=== PATIENT | male | born 1980 | race Caucasian/White ===

== ENCOUNTER → 2016-09-05 | Outpatient (CLI) | payer OTHER ==
--- NOTE | 2016-09-05 16:02 | US ---
EXAMINATION TYPE: US abdomen limited DATE OF EXAM: 09/05/2016 3:55 PM COMPARISON: NONE CLINICAL HISTORY: K34.9 Epigastric Hernia. Pt has a soft tissue non-reducible mass at the epigastric area; not tender except when pressing hard; first noticed about 2-3 months ago Scanned over the patient's area of concern. There is a 2.2 x 0.9 x 2.1cm echogenic solid, non-vascul ar mass ?lipoma IMPRESSION: PROBABLE 2.2 CM LIPOMA IN THE ANTERIOR ABDOMINAL WALL.
== END | disposition home or self-care (01) ==
LOC: RADUSWWP 15:41
PROVIDERS: ATTEND Family Medicine
DX: K43.9 Ventral hernia without obstruction or gangrene (principal)
CPT/HCPCS: 76705

== ENCOUNTER → 2017-08-15 | Outpatient (CLI) | payer OTHER ==
--- NOTE | 2017-08-16 08:21 | US ---
EXAMINATION TYPE: US carotid duplex BILAT DATE OF EXAM: 08/15/2017 COMPARISON: NONE CLINICAL HISTORY: H53.10 SUBJECTIVE VISUAL DISTURBANCES. EXAM MEASUREMENTS: RIGHT: Peak Systolic Velocity (PSV) cm/sec ----- Right CCA: 125.3 ----- Right ICA: 117.3 ----- Right ECA: 130.2 ICA/CCA ratio: 0.9 RIGHT: End Diastole cm/sec ----- Right CCA: 43.0 ----- Right ICA: 38.1 ----- Right ECA: 36.5 LEFT: Peak Systolic Velocity (PSV) cm/sec ----- Left CCA: 150.9 ----- Left ICA: 136.6 ----- Left ECA: 101.2 ICA/CCA ratio: 0.9 LEFT: End Diastole cm/sec ----- Left CCA: 54.4 ----- Left ICA: 36.5 ----- Left ECA: 31.4 VERTEBRALS (direction of flow): Right Vertebral: Antegrade Left Vertebral: Antegrade Rhythm: Normal No significant stenosis seen, no plaque identified. IMPRESSION: 1. Mild elevation of the left internal carotid artery velocity suggesting moderate stenosis between 5 0 and 69%. Significant plaquing however is not identified Criteria for Assigning % of Stenosis / Diameter reduction (Estimation based on the indirect measurements of the internal carotid artery velocities (ICA PSV). 1. Normal (no stenosis)=ICA PSV < 125 cm/s: ratio < 2.0: ICA EDV<40 cm/s. 2. Less than 50% stenosis=ICA PSV < 125 cm/s: ratio < 2.0: ICA EDV<40 cm/s. 3. 50 to 69% stenosis=ICA PSV of 125 to 230 cm/s: ration 2.0 ? 4.0: ICA EDV 40-100 cm/s. 4. Greater than 70% stenosis to near occlusion= ICA PSV > 230 cm/s: ratio > 4.0: ICA EDV > 100 cm/s. 5. Near occlusion= ICA PSV velocities may be low or undetectable: variable ratio and ICA EDV. 6. Total occlusion=unable to detect flow.
== END | disposition home or self-care (01) ==
LOC: RADUSWWP 16:57
PROVIDERS: ATTEND Family Medicine
DX: H53.10 Unspecified subjective visual disturbances (principal)
CPT/HCPCS: 93880

== ENCOUNTER → 2017-09-11 | Outpatient (CLI) | payer OTHER ==
[2017-09-11 17:32] LABS: ALT 29 U/L (21-72); AST 26 U/L (17-59); Blood Urea Nitrogen 22 mg/dL (9-20)
[2017-09-12 00:19] LABS: Folate, Serum 19.5 ng/mL
[2017-09-12 10:37] LABS: Lyme IgG/IgM 0.1 Index
== END | disposition home or self-care (01) ==
LOC: LABWHC1 16:54
PROVIDERS: ATTEND Psychiatry & Neurology Neurology
DX: R41.3 Other amnesia (principal)
CPT/HCPCS: 36415; 82565; 82607; 82746; 84450; 84460; 84520; 86618

== ENCOUNTER → 2017-09-12 | Outpatient (CLI) | payer OTHER ==
--- NOTE | 2017-09-12 20:08 | MR ---
EXAMINATION TYPE: MR brain wo/w con DATE OF EXAM: 09/12/2017 COMPARISON: NONE HISTORY: Double vision, mood changes, memory loss TECHNIQUE: Multiplanar, multisequence images of the brain and brainstem is performed without and with IV contras t, utilizing 10 mL intravenous Gadavist . FINDINGS: Diffusion weighted images demonstrate no evidence of a recent infarct or other diffusion ab normality. There is no extra-axial fluid collection. Punctate right parietal lobe 1-2 mm foci are se en on FLAIR and axial fat sat image 17 and 21. No other significant white matter abnormality is ident ified. The ventricular system and cisternal spaces are normal in size and appearance. The brain vol ume is age appropriate. Midline structures demonstrate normal morphology. 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 The craniocervical junction appears within normal limits. Post contrast images demonstrate no abno rmal enhancement. The dural venous sinuses appear patent. The globes are intact. Fluid layers seen wi thin the right maxillary sinus with mild circumferential mucosal thickening of the maxillary sinuses, moderate mucosal thickening within the sphenoid sinus and ethmoid sinuses and mild right frontal muc osal thickening. Secretions are also noted within the posterior nasopharynx. Mastoid air cells are we ll aerated. Major intracranial flow voids are maintained with dominance of the left vertebral artery. IMPRESSION: 1. Moderate pansinusitis. 2. No acute intracranial process or abnormal intracranial enhancement. No intracranial enhancing mass . 3. Two punctate (1-2 mm) foci of nonspecific white matter change. These are not in a typical distribu tion of demyelinating disease and may represent sequela of microvascular injury.
== END | disposition home or self-care (01) ==
LOC: RADMRIMAIN 18:44
PROVIDERS: ATTEND Psychiatry & Neurology Neurology
DX: D49.6 Neoplasm of unspecified behavior of brain (principal); R94.09 Abnormal results of other function studies of central nervous system; J32.4 Chronic pansinusitis
CPT/HCPCS: 70553; A9581

== ENCOUNTER → 2017-10-26 | Outpatient (CLI) | payer OTHER ==
--- NOTE | 2017-10-26 17:51 | CONS ---
CONSULTATION DATE OF SERVICE: 10/26/2017 This patient is a 37-year-old gentleman who has been evaluated in the sleep center for possible obstructive sleep apnea-hypopnea syndrome. HISTORY OF PRESENT ILLNESS/SLEEP-WAKE EVALUATION: Patient's usual sleep schedule is from 11 p.m. to 5:30 a.m. on working days and from midnight until 10 a.m. on weekends. No problem with falling asleep. He does not watch TV in the bedroom. He sleeps in different positions with his . According to her, he has loud snoring and witnessed episodes of stopped breathing during sleep. He wakes up tired, has difficulties paying attention, falling asleep during the day, worried about his sleep. He has episodes of irritability, depression and anxiety. Meade Sleepiness Scale is significantly increased at 17. No history of hypnagogic hallucinations, sleep paralysis or cataplexy. PAST MEDICAL HISTORY: 1. Anxiety. 2. Depression. 3. Episodes of headaches. Sometimes episodes of headaches happen in the morning after awakening, which could be related to obstructive sleep apnea. MEDICATIONS: 1. Lexapro. 2. Topamax. PAST SURGICAL HISTORY: None. SOCIAL HISTORY: Positive for smoking for about 23 years up to one and one half packs a day. Quit about 1 year ago. Alcohol consumption: Several beers per week. REVIEW OF SYSTEMS: Snoring, witnessed episodes of stopped breathing during sleep, sleepiness, significant sleepiness during the day. Patient may take a nap during the day. FAMILY HISTORY: Heart problems, snoring, cancer, diabetes, acid reflux. PHYSICAL EXAMINATION: GENERAL A pleasant gentleman without distress. VITAL SIGNS: BP 132/71, HR 74, RR 16, height 6 feet 2 inches, weight 218. Body mass index 27.9. Neck 16-1/4 inches in circumference. Temperature 97.6, oxygen saturation at room air 97% HEENT: PERRLA, EOMI. Evaluation of oropharynx showed tongue protrudes midline; moderately low position of soft palate. Small oropharyngeal air space. Restriction of nasal breathing bilaterally. Nasal septum deviation. NECK: Supple. No JVD. Thyroid is not palpable. LUNGS: Clear to percussion and to auscultation. Good air exchange. No wheezing or rhonchi. HEART: S1, S2 regular. No murmurs, gallops or rubs. ABDOMEN: Soft and nontender. Bowel sounds are present. No organomegaly appreciated. EXTREMITIES : No clubbing or cyanosis. BOBBIN FIXER: Awake, alert, and oriented X3. Cranial nerves 2 to 7 intact. There is no fasciculation or atrophy. noted. No focal deficits observed. IMPRESSION: 1. Snoring, witnessed episodes of stopped breathing during sleep, small oropharyngeal air space, restriction of nasal breathing, wide neck 16-1/4 inches, significant excessive daytime sleepiness, Meade Sleepiness Scale 17; obstructive sleep apnea-hypopnea syndrome. 2. History of anxiety. 3. History of depression. 4. History of headaches; some of them start in the morning after awakening. 5. Significant sleepiness. Meade Sleepiness Scale increased at 17. Differential diagnosis should include also hypersomnia, including narcolepsy and idiopathic hypersomnia. 6. Nasal septum deviation. PLAN: 1. Polysomnography for evaluation of patient's breathing during sleep. 2. CPAP/BiPAP titration if sleep study confirms obstructive sleep apnea-hypopnea syndrome. 3. Preferable position during sleep on the side. 4. No driving if patient feels any sleepiness. 5. Multiple sleep latency test if sleep study is negative for obstructive sleep apnea- hypopnea syndrome. 6. I will see patient for follow up visit to explain results of testing and following plan. Thank you very much for referring this patient for consultation. Sincerely, Tho Kaba MD, PhD, FAASM Diplomat of [place] [employer] [place] [employer] Manager [facility] [place] MMODL / RONNIEN: [id number] /
== END | disposition home or self-care (01) ==
LOC: SLEEP 15:02
PROVIDERS: ATTEND Internal Medicine
DX: G47.33 Obstructive sleep apnea (adult) (pediatric) (principal); J39.2 Other diseases of pharynx; J34.2 Deviated nasal septum; F41.9 Anxiety disorder, unspecified; F32.9 Major depressive disorder, single episode, unspecified; Z86.69 Personal history of other diseases of the nervous system and sense organs; Z79.899 Other long term (current) drug therapy; Z87.891 Personal history of nicotine dependence
CPT/HCPCS: 99211

== ENCOUNTER → 2018-02-08 | Outpatient (CLI) | payer OTHER ==
--- NOTE | 2018-02-08 12:44 | SFUN ---
SLEEP CENTER FOLLOW UP NOTE DATE OF SERVICE: 02/08/2018 A 37-year-old gentleman has been followed in sleep center to discuss results of sleep studies. I discussed results of sleep studies with patient in details. Polysomnogram showed mild obstructive sleep apnea-hypopnea syndrome with apnea-hypopnea index of 5.9, but in REM sleep 34.0. Multiple sleep latency test done on the following day consisted from 5 naps. Mean sleep latency normal 15.5 minutes. No sleep onset REM periods have been documented. MEDICATIONS: Lexapro, Topamax. PHYSICAL EXAMINATION: During physical exam, patient in no distress. VITAL SIGNS: BP 106/65, HR 60, RR 16, temp 98.2, oxygen saturation on room air 97%. HEENT: PERRLA, EOMI. Oropharynx moderately low position of soft palate. Nose: Slight restriction of nasal breathing. NECK: Supple, no JVD. Thyroid is not palpable. LUNGS: Clear to percussion and to auscultation. Good air exchange. No wheezing or rhonchi. HEART: S1, S2 regular. No murmurs, gallops, or rubs. ABDOMEN: Soft and nontender. Bowel sounds are present. No organomegaly appreciated. EXTREMITIES: No clubbing or cyanosis. WHEEL LACER AND TRUER; awake, alert, and oriented X3. Cranial nerves 2 to 7 intact. There is no fasciculation or atrophy. noted. No focal deficits observed. IMPRESSION: 1. Mild obstructive sleep apnea-hypopnea syndrome. Patient presents with symptoms of significant excessive daytime sleepiness, severe respiratory abnormalities related to REM sleep. 2. History of anxiety. 3. History of depression. 4. History of headaches, sometimes started in the morning after awakenings. 5. Nasal septum deviation. PLAN: 1. CPAP titration for correction of respiratory abnormalities. 2. Sleep hygiene with regular time in bed for at least 8 hours. 3. No driving if feeling any sleepiness. 4. I will see patient for follow-up visit after he will be started on treatment with CPAP to evaluate clinical response and treatment compliance with treatment and make any necessary adjustments related to mask fitting, pressure and humidification. Thank you very much for allowing me to participate in management of your patient. Sincerely, Tho Kaba MD, PhD, FAASM Diplomat of [place] [employer] [place] [employer] Traffic And Transport Planner [facility] [place] MMODL / IJN: [id number] /
== END | disposition home or self-care (01) ==
LOC: SLEEP 11:10
PROVIDERS: ATTEND Internal Medicine
DX: G47.33 Obstructive sleep apnea (adult) (pediatric) (principal); J34.2 Deviated nasal septum; F41.9 Anxiety disorder, unspecified; F32.9 Major depressive disorder, single episode, unspecified; Z79.899 Other long term (current) drug therapy

== ENCOUNTER 2021-02-01 10:32 | Emergency (ER) | payer OTHER ==
[2021-02-01] MEDS ORDERED: ACETAMINOPHEN TAB 500 MG TAB PO STA (11:19)
--- NOTE | 2021-02-01 12:10 | XR ---
EXAMINATION TYPE: XR chest 1V portable DATE OF EXAM: 02/01/2021 COMPARISON: 04/23/2010 HISTORY: Suspected COVID-19 pneumonia TECHNIQUE: Single frontal view of the chest is obtained. FINDINGS: Vague peripheral infiltrate suggested particularly right upper lobe. Correlate for pneumonia. The cardiac silhouette size is within normal limits. The osseous structures are intact. IMPRESSION: 1. Vague peripheral infiltrate suggested particularly right upper lobe. Correlate for pneumonia.
[2021-02-01 12:29] VITALS: RESP 20
--- NOTE | 2021-02-01 12:44 | ED ---
Fever HPI - General Chief Complaint: Fever Stated Complaint: Covid symptoms, +exposure Time Seen by Provider: 02/01/21 11:18 Source: patient Mode of arrival: ambulatory Limitations: no limitations - History of Present Illness Initial Comments: 40-year-old male presents to the emergency department with chief complaint of cough and fever. States symptoms are benign well for approximately one week. States she has been taking Tylenol and able to break the fever but it is not fully resolving. He reports a nonproductive cough with occasional rhinorrhea but denies any sore throat or otalgia. Denies any nausea vomiting or diarrhea. States his girlfriend tested positive for Covid. He is not vaccinated. Denies any chest pain or shortness of breath at this time. Not a smoker. - Related Data Home Medications Medication Instructions Recorded Confirmed Ibuprofen [Motrin Ib] 600 - 800 mg PO Q8H PRN 02/01/21 02/01/21 guaiFENesin [Mucinex] 600 mg PO BID 02/01/21 02/01/21 Previous Rx's Medication Instructions Recorded Azithromycin [Zithromax Z-pack (6 0 mg PO DIRECTED #1 pack 02/01/21 tabs)] Allergies Allergy/AdvReac Type Severity Reaction Status Date / Time No Known Allergies Allergy Verified 02/01/21 12:30 Review of Systems ROS Statement: Those systems with pertinent positive or pertinent negative responses have been documented in the HPI. ROS Other: All systems not noted in ROS Statement are negative. Past Medical History Past Medical History: No Reported History History of Any Multi-Drug Resistant Organisms: None Reported Past Surgical History: No Surgical Hx Reported Past Psychological History: No Psychological Hx Reported Smoking Status: Never smoker Past Alcohol Use History: None Reported Past Drug Use History: None Reported General Exam Limitations: no limitations General appearance: alert, in no apparent distress Head exam: Present: atraumatic, normocephalic, normal inspection Eye exam: Present: normal appearance Pupils: Present: normal accommodation ENT exam: Present: normal exam, normal oropharynx, mucous membranes moist, TM's normal bilaterally, normal external ear exam Neck exam: Present: normal inspection, full ROM. Absent: tenderness, lymphadeno lisa Respiratory exam: Present: normal lung sounds bilaterally. Absent: respiratory distress, wheezes, rales, rhonchi, stridor, chest wall tenderness, accessory muscle use Cardiovascular Exam: Present: regular rate, normal rhythm, normal heart sounds. Absent: systolic murmur Extremities exam: Present: normal inspection, full ROM. Absent: tenderness Back exam: Present: normal inspection, full ROM. Absent: tenderness Neurological exam: Present: alert, oriented X3, normal gait Psychiatric exam: Present: normal affect, normal mood Skin exam: Present: warm, dry, intact, normal color Course Vital Signs 02/01/21 02/01/21 11:08 12:28 Temperature 99.7 F H 102.3 F H Pulse Rate 104 H 104 H Respiratory 18 20 Rate Blood Pressure 133/75 124/85 O2 Sat by Pulse 94 L 93 L Oximetry Medical Decision Making - Medical Decision Making 40-year-old male presents to the emergency department with chief complaint of cough and fever. On physical examination, patient is well-appearing. Lungs are clear to auscultation. ENT examination is unremarkable. Was febrile and tachycardic on arrival. He was given Tylenol. Chest x-ray revealed peripheral infiltrates suggesting for pneumonia. He was told positive. She was given a monoclonal antibody. Patient was observed after infusion and feels better. He will be discharged. I will also prescribe azithromycin for the patient. He does not have any chest pain shortness of breath. Advised to return to emergency department if symptoms worsen. C covid-19A protocol discussed. Case discussed with - Lab Data Lab Results 02/01/21 Range/Units 11:57 Coronavirus (PCR) Detected A (Not Detectd) Disposition Clinical Impression: COVID-19 Disposition: HOME SELF-CARE Condition: Stable Instructions (If sedation given, give patient instructions): Coronavirus Disease 2019 (COVID-19) Additional Instructions: Please return to the Emergency Department if symptoms worsen or any other concerns. Prescriptions: Azithromycin [Zithromax Z-pack (6 tabs)] 0 mg PO DIRECTED #1 pack Is patient prescribed a controlled substance at d/c from ED?: No Referrals: Carlo Aleman MD [Primary Care Provider] - 1-2 days Time of Disposition: 13:55
[2021-02-01] MEDS ORDERED: SODIUM CHLORIDE 0.9% 50 ML IVPB ONE (13:30)
[2021-02-01] MEDS ORDERED: CASIRIVIMAB (REGN10933) (EUA) 600 MG, IMDEVIMAB (REGN10987) (EUA) 600 MG in SODIUM CHLO... IVPB ONE (14:00)
[2021-02-01 14:43] VITALS: BP 133/91; PULSE 93; TEMP 100.7
[2021-02-01] MEDS ORDERED: IBUPROFEN 400 MG TAB PO STA (16:42)
== END 2021-02-01 17:21 | disposition home or self-care (01) ==
LOC: EC 10:32
DX: U07.1 COVID-19 (principal)
CPT/HCPCS: 99283; 96365; 87635; 71045; Q0243

== ENCOUNTER → 2021-07-09 | Outpatient (CLI) | payer BC ==
--- NOTE | 2021-07-10 08:24 | US ---
EXAMINATION TYPE: US carotid duplex BILAT DATE OF EXAM: 07/09/2021 COMPARISON: US dated 08/15/2017 CLINICAL HISTORY: I65.22 atheroschlerosis. EXAM MEASUREMENTS: RIGHT: Peak Systolic Velocity (PSV) cm/sec ----- Right CCA: 105.6 ----- Right ICA: 119.4 ----- Right ECA: 127.6 ICA/CCA ratio: 1.1 RIGHT: End Diastole cm/sec ----- Right CCA: 18.9 ----- Right ICA: 32.7 ----- Right ECA: 15.0 LEFT: Peak Systolic Velocity (PSV) cm/sec ----- Left CCA: 110.6 ----- Left ICA: 86.7 ----- Left ECA: 85.3 ICA/CCA ratio: 0.8 LEFT: End Diastole cm/sec ----- Left CCA: 27.2 ----- Left ICA: 18.0 ----- Left ECA: 18.2 VERTEBRALS (direction of flow): Right Vertebral: Antegrade Left Vertebral: Antegrade Rhythm: Arrhythmia No significant stenosis seen. IMPRESSION: No evidence for hemodynamically significant stenosis. Criteria for Assigning % of Stenosis / Diameter reduction (Estimation based on the indirect measurements of the internal carotid artery velocities (ICA PSV). 1. Normal (no stenosis)=ICA PSV < 125 cm/s: ratio < 2.0: ICA EDV<40 cm/s. 2. Less than 50% stenosis=ICA PSV < 125 cm/s: ratio < 2.0: ICA EDV<40 cm/s. 3. 50 to 69% stenosis=ICA PSV of 125 to 230 cm/s: ration 2.0 ? 4.0: ICA EDV 40-100 cm/s. 4. Greater than 70% stenosis to near occlusion= ICA PSV > 230 cm/s: ratio > 4.0: ICA EDV > 100 cm/s. 5. Near occlusion= ICA PSV velocities may be low or undetectable: variable ratio and ICA EDV. 6. Total occlusion=unable to detect flow.
== END | disposition home or self-care (01) ==
LOC: RADUSWWP 15:41
PROVIDERS: ATTEND Family Medicine
DX: I65.22 Occlusion and stenosis of left carotid artery (principal)
CPT/HCPCS: 93880

== ENCOUNTER → 2021-08-05 | Outpatient (CLI) | payer BC ==
[2021-08-05 23:37] LABS: T4, Free (Free Thyroxine) 1.25 ng/dL (0.800-1.800)
== END | disposition home or self-care (01) ==
LOC: LABWHC1 15:46
PROVIDERS: ATTEND Family Medicine
DX: R00.2 Palpitations (principal)
CPT/HCPCS: 36415; 84439; 84443; 84481

== ENCOUNTER → 2024-10-30 | Outpatient (CLI) | payer BC ==
--- NOTE | 2024-10-31 06:49 | US ---
EXAMINATION TYPE: US carotid duplex BILAT DATE OF EXAM: 10/30/2024 COMPARISON: CLINICAL INDICATION: Male, 44 years old with history of I65.22 STENOSIS OF LEFT CAROTID ARTERY; HTN- on meds Additional History: .... TECHNIQUE: Grayscale, color Doppler and spectral Doppler evaluation of the bilateral carotid systems and vertebral arteries. Indirect Doppler criteria was utilized. FINDINGS: EXAM MEASUREMENTS: RIGHT: Peak Systolic Velocity (PSV) cm/sec ----- Right CCA: 118.6 ----- Right ICA: 128.5 ----- Right ECA: 100.4 ICA/CCA ratio: 1.1 RIGHT: End Diastole cm/sec ----- Right CCA: 31.4 ----- Right ICA: 30.0 ----- Right ECA: 21.5 LEFT: Peak Systolic Velocity (PSV) cm/sec ----- Left CCA: 112.4 ----- Left ICA: 113.4 ----- Left ECA: 106.9 ICA/CCA ratio: 1.0 LEFT: End Diastole cm/sec ----- Left CCA: 32.2 ----- Left ICA: 34.4 ----- Left ECA: 29.2 VERTEBRALS (direction of flow): Right Vertebral: Antegrade Left Vertebral: Antegrade Rhythm: Normal AIRCRAFT CLEANER NOTES: No plaque or wall thickening. Elevated left prox and mid CCA velocity. Color Doppler imaging shows patency with blood flow throughout the carotid artery. Spectral waveforms are within normal limits. IMPRESSION: Elevated peak systolic velocity bilateral common carotid arteries raises concern for unde rlying uncontrolled hypertension. Correlate clinically. Right: No hemodynamically significant stenosis. Left: No hemodynamically significant stenosis. Criteria for Assigning % of Stenosis / Diameter reduction (Estimation based on the indirect measurements of the internal carotid artery velocities (ICA PSV). 1. Normal (no stenosis)=ICA PSV < 180 cm/s: ratio < 2.0: ICA EDV<40 cm/s. 2. Less than 50% stenosis=ICA PSV < 180 cm/s: ratio < 2.0: ICA EDV<40 cm/s. 3. 50 to 69% stenosis=ICA PSV of 180 to 230 cm/s: ration 2.0 ? 4.0: ICA EDV 40-100 cm/s. PSV 125-180 cm/sec and ICA/CCA PSV Ratio ? 2.0 is also consistent with 50-69% stenosis 4. Greater than 70% stenosis to near occlusion= ICA PSV > 230 cm/s: ratio > 4.0: ICA EDV > 100 cm/s. 5. Near occlusion= ICA PSV velocities may be low or undetectable: variable ratio and ICA EDV. 6. Total occlusion=unable to detect flow. [facility], , 10/31/2024 6:47 AM
== END | disposition home or self-care (01) ==
LOC: RADUSWWP 15:59
PROVIDERS: ATTEND Family Medicine
DX: I65.22 Occlusion and stenosis of left carotid artery (principal); I10 Essential (primary) hypertension
CPT/HCPCS: 93880